=== PATIENT | female | born 1950 | race Caucasian/White ===

== ENCOUNTER 2022-11-06 06:00 | Day surgery (SDC) | payer OTHER ==
[~2022-11-06] VITALS: Ht 162.6 cm; Wt 93.4 kg
[2022-11-06] MEDS ORDERED: CEFAZOLIN SOD 1 GM/ ISO 50 ML PREMIX IV ONE (07:00)
[2022-11-06] MEDS ORDERED: hydrALAZINE HCL 20 MG/ML VIAL IVP PRN (11:00)
[2022-11-06] MEDS ORDERED: LR 1,000 ML IV SCH (11:00)
[2022-11-06] MEDS ORDERED: LABETALOL 100 MG/ 20ML VIAL IVP PRN (11:00)
[2022-11-06] MEDS ORDERED: MIDAZOLAM HCL 2 MG/2 ML VIAL (VERSED) IVP PRN (11:00)
[2022-11-06] MEDS ORDERED: ONDANSETRON HCL 4 MG/2 ML VIAL IVP PRN ×2 (11:00→12:45)
[2022-11-06] MEDS ORDERED: HYDROmorphone 1 MG/ML INJ. CARTRIDGE IVP PRN ×3 (11:00→12:45)
[2022-11-06] MEDS ORDERED: MEPERIDINE HCL/PF 25 MG/ML DISP.SYRIN IVP PRN (11:00)
[2022-11-06] MEDS ORDERED: ACETAMINOPHEN I.V. 1000 MG 100 ML IV ONE (11:14)
[2022-11-06] MEDS ORDERED: HYDROcodone/ACETAMIN 5-325 MG TAB (NORCO/ VICODIN) PO PRN ×2 (12:45)
[2022-11-06] MEDS ORDERED: ACETAMINOPHEN 325 MG TABLET PO PRN (12:45)
[2022-11-06] MEDS ORDERED: DEXAMETHASONE SOD PHOSPHATE 4 MG/ML VIAL ONE (12:50)
[2022-11-06] MEDS ORDERED: MIDAZOLAM HCL 5 MG/ML VIAL (VERSED) IV ONE (12:50)
[2022-11-06] MEDS ORDERED: PROPOFOL 200MG/ 20ML VIAL (DIPRIVAN) IV ONE (12:50)
[2022-11-06] MEDS ORDERED: LIDOCAINE 2%, 20 ML MDV ONE (12:50)
[2022-11-06] MEDS ORDERED: DESFLURANE 15 MIN GAS INH ONE (12:50)
[2022-11-06] MEDS ORDERED: ISOSULFAN BLUE 5 ML VIAL (LYMPHAZURIN) ONE (12:50)
[2022-11-06] MEDS ORDERED: NS IRRIG SOLN 1000 ML IR ONE (12:50)
[2022-11-06] MEDS ORDERED: ONDANSETRON HCL 4 MG/2 ML VIAL ONE (12:50)
[2022-11-06] MEDS ORDERED: LR 1,000 ML IV.SOLN IV ONE (12:50)
[2022-11-06] MEDS ORDERED: fentaNYL CITRATE/PF 100 MCG/2 ML AMP ONE (12:50)
[2022-11-06] MEDS ORDERED: KETOROLAC TROMETHAMINE 30 MG VIAL ONE (12:50)
[2022-11-06] MEDS ORDERED: ROCURONIUM BROMIDE 10 MG/ML (ZEMURON) ONE (12:50)
[2022-11-06] MEDS ORDERED: SUGAMMADEX SODIUM 200 MG/2 ML VIAL IV ONE (12:50)
[2022-11-06] MEDS ORDERED: HYDROmorphone 1 MG/ML INJ. CARTRIDGE ONE (13:40)
[2022-11-06 16:36] VITALS: BP_SYST 152
[2022-11-06] MEDS ORDERED: CEFAZOLIN 1 GM IVPB PREMIX 50 ML IV SCH (17:00)
[2022-11-06 20:00] VITALS: BP_SYST 134
[2022-11-06] MEDS: D5/0.45 NS 1,000 ML IV SCH (20:49)
[2022-11-06] MEDS: FAMOTIDINE PF 20 MG/2 ML VIAL IVP SCH (20:50)
[2022-11-07 04:00] VITALS: BP_SYST 128
[2022-11-07] MEDS: D5/0.45 NS 1,000 ML IV SCH ×2 (06:44→08:45)
[2022-11-07 07:35] LABS: CALCIUM 8.1 mg/dL (8.4-11.0); CREATININE 0.81 mg/dL (0.55-1.30)
[2022-11-07 07:43] LABS: BASOPHILS % (AUTO) 0.3 % (0.0-2.0); EOSINOPHILS % (AUTO) 0.1 % (0.0-4.0); HEMATOCRIT 35.8 % (36-48); HEMOGLOBIN 11.9 g/dL (12.0-16.0); LYMPHOCYTES # (AUTO) 1.6 K/uL (1.0-5.5); LYMPHOCYTES % (AUTO) 13.8 % (20.5-51.5); MEAN CORPUSCULAR HEMOGLOBIN 29 pg (27-31); MEAN CORPUSCULAR HGB CONC 33 % (32-36); MEAN CORPUSCULAR VOLUME 86 fL (79.0-98.0); NEUTROPHILS # (AUTO) 8.8 K/uL (1.8-7.7); NEUTROPHILS % (AUTO) 76.8 % (40.0-70.0); PLATELET COUNT (AUTO) 248 K/uL (130-430); RED BLOOD CELL COUNT(AUTO) 4.15 MIL/uL (4.2-6.2); RED CELL DISTRIBUTION WIDTH 13.4 % (9.0-15.0); WHITE BLOOD COUNT (AUTO) 11.5 K/uL (4.8-10.8)
[2022-11-07 08:00] VITALS: BP_SYST 151
[2022-11-07] MEDS ORDERED: ALENDRONATE SODIUM 10 MG TABLET (FOSAMAX) PO SCH (08:45)
[2022-11-07] MEDS ORDERED: LOSA1TAB40 PO (08:52)
[2022-11-07] MEDS ORDERED: ATEN-168 PO (08:52)
[2022-11-07] MEDS ORDERED: SYN50 PO (08:52)
[2022-11-07] MEDS ORDERED: ALEN10TA25 PO (08:52)
[2022-11-07] MEDS ORDERED: LIP20 PO (08:52)
[2022-11-07] MEDS ORDERED: AMLO2.5T2 PO (08:52)
[2022-11-07] MEDS ORDERED: ENOXAPARIN SODIUM 30 MG/0.3 ML SYRINGE SUBCUT SCH (09:00)
[2022-11-07] MEDS ORDERED: NON-FORMULARY MEDICATION (Losartan/Hctz* (Losartan-Hctz 100-25 Mg Tab*) 1 EACH) PO SCH (09:00)
[2022-11-07] MEDS: FAMOTIDINE PF 20 MG/2 ML VIAL IVP SCH (09:35)
[2022-11-07 12:11] VITALS: BP_SYST 142
[2022-11-07 12:44] VITALS: BP_SYST 142
[2022-11-07] MEDS ORDERED: ATENOLOL 50 MG TABLET (TENORMIN) PO ONE (13:15)
[2022-11-07] MEDS ORDERED: amLODIPine BESYLATE 5 MG TABLET PO ONE (13:15)
[2022-11-07 16:00] VITALS: BP_SYST 149
[2022-11-07] MEDS ORDERED: *LOVENOX0.75MG/KG Q12H/PHARMACY XX PRN (17:00)
[2022-11-07] MEDS ORDERED: ATORVASTATIN 20 MG TABLET PO SCH (21:00)
[2022-11-08] MEDS ORDERED: LEVOTHYROXINE SODIUM 0.05 MG TABLET PO SCH (07:00)
[2022-11-08] MEDS ORDERED: amLODIPine BESYLATE 5 MG TABLET PO SCH (09:00)
[2022-11-08] MEDS ORDERED: ATENOLOL 50 MG TABLET (TENORMIN) PO SCH (09:00)
== END 2022-11-07 12:56 | disposition home or self-care (01) ==
LOC: SMU 06:00 → SDS 06:00 → SMU 12:42 → SDS 11-07 12:56
PROVIDERS: ATTEND Colon & Rectal Surgery
DX: C50.911 Malignant neoplasm of unspecified site of right female breast (principal); C50.912 Malignant neoplasm of unspecified site of left female breast; A01.03 Typhoid pneumonia; Z20.822 Contact with and (suspected) exposure to COVID-19; I10 Essential (primary) hypertension; E78.5 Hyperlipidemia, unspecified; E03.9 Hypothyroidism, unspecified; Z88.8 Allergy status to other drugs, medicaments and biological substances; M17.10 Unilateral primary osteoarthritis, unspecified knee; M81.0 Age-related osteoporosis without current pathological fracture; H91.93 Unspecified hearing loss, bilateral; E66.01 Morbid (severe) obesity due to excess calories; Z68.35 Body mass index [BMI] 35.0-35.9, adult; Z79.899 Other long term (current) drug therapy
CPT/HCPCS: 36415 ×2; 71046; 19303; 38792; 38525; 80048; 85025; 88307; 88333; 88342; 87426; U0003; J3490 ×3; A9541; J0690; J1100; J1885; J2001; J2250; J2405; J2704; J3010; J1170; Q9968; J7120; J0131; J1650; 78195; 88309